=== PATIENT | female | born 1995 | race Caucasian/White ===

== ENCOUNTER → 2016-07-16 | Outpatient (REF) | payer OTHER | LOC: M LAB REF 13:05 | PROVIDERS: ATTEND Advanced Practice Midwife | DX: Z36 Encounter for antenatal screening of mother (principal); Z3A.00 Weeks of gestation of pregnancy not specified ==

== ENCOUNTER → 2016-07-17 | Outpatient (CLI) | payer OTHER, MEDICAID ==
[2016-07-17 14:57] LABS: BASO % 0.4 % (0.0-1.0); EOS # 0.2 K/mm3 (0.0-0.50); EOS % 2.1 % (0.0-3.0); LARGE UNSTAINED CELL # 0.1 K/mm3 (0.0-0.4); LARGE UNSTAINED CELL % 1.3 % (0.0-4.0); LYMPH # 1.5 K/mm3 (1.5-6.5); LYMPH % 17.2 % (24.0-44.0); MEAN CORPUSCULAR HEMOGLOBIN 27.2 pg (27.0-33.0); MEAN CORPUSCULAR VOLUME 82.5 fl (80.0-96.0); MONO # 0.3 K/mm3 (0.0-0.8); MONO % 3.7 % (0.0-5.0); NEUTROPHILS # 6.5 K/mm3 (1.8-7.7); NEUTROPHILS % 75.4 % (36.0-66.0); PLATELET COUNT, AUTOMATED 191 k/mm3 (150-450); RED CELL DISTRIBUTION WIDTH 15.3 % (11.5-14.5); WHITE BLOOD COUNT 8.7 K/mm3 (4.0-10.0)
== END ==
LOC: M LAB 14:32
PROVIDERS: ATTEND Advanced Practice Midwife
DX: Z36 Encounter for antenatal screening of mother (principal)

== ENCOUNTER 2016-08-19 14:38 | Inpatient (IN) | payer OTHER, MEDICAID ==
[~2016-08-19] VITALS: Ht 162.6 cm; Wt 68.0 kg
[2016-08-19 14:56] VITALS: BP 122/80
[2016-08-19] MEDS ORDERED: VALT500T PO (15:25)
[2016-08-19] MEDS ORDERED: IRON50TA PO (15:25)
[2016-08-19 16:09] LABS: MEAN CORPUSCULAR HEMOGLOBIN 26.9 pg (27.0-33.0); MEAN CORPUSCULAR HGB CONC 33.8 g/dl (32.0-36.5); MEAN CORPUSCULAR VOLUME 79.8 fl (80.0-96.0); RED CELL DISTRIBUTION WIDTH 14.8 % (11.5-14.5); WHITE BLOOD COUNT 11.8 K/mm3 (4.0-10.0)
[2016-08-19] MEDS: miSOPROStol 50 MCG 1/2 TAB (S0191) PO SCH ×2 (17:42→22:39)
[2016-08-19 19:34] VITALS: BP 114/75
[2016-08-19 20:40] VITALS: BP 114/75
[2016-08-19 22:39] VITALS: BP 101/66
[2016-08-20] VITALS (55 sets, daily range): BP systolic 85–145; BP diastolic 50–89
[2016-08-20] MEDS ORDERED: PROMETHAZINE INJ 25 MG/ML VIAL (J2550) IV PRN
[2016-08-20] MEDS: BUTORPHANOL 2 MG/ML INJ (J0595) IV PRN ×2 (00:23→04:41)
--- NOTE | 2016-08-20 02:51 | HPE ---
DATE OF ADMISSION: 08/19/2016 REASON FOR ADMISSION: Induction of labor. HISTORY OF PRESENT ILLNESS: Ms. Walters is a 21-year-old 1, who presents at 41 weeks 0 days estimated gestational age by a mid trimester ultrasound for induction of labor. Her course is remarkable for late entry care at approximately 16 weeks. Since that appointment, she has had appropriate care throughout. PAST MEDICAL HISTORY: None. PAST SURGICAL HISTORY: None. PAST OBSTETRICAL HISTORY: She is 1. MEDICATIONS: Include vitamins and Valtrex. ALLERGIES: She has no known drug allergies. PHYSICAL EXAMINATION: VITAL SIGNS: Stable. She is afebrile. GENERAL APPEARANCE: Well-appearing in no acute distress. She has category 1 heart rate tracing. LUNGS: Clear to auscultation bilaterally. CARDIOVASCULAR: Heart is regular rate and rhythm. ABDOMEN: Soft, gravid, and nontender. Estimated weight (EFW) 3500 grams. CERVICAL EXAMINATION: She was 1-2 cm dilated, 50% effaced, -3 station. LABORATORIES: Her blood type is B positive. Antibody screen is negative. Rubella is immune. RPR is nonreactive. Hepatitis surface antigen is negative. HIV is negative. Hepatitis C is nonreactive. Chlamydia and gonorrhea screens are negative. She had a normal 1-hour Glucola of 81. She is group B Streptococcus (GBS) negative. ASSESSMENT: 1. Ms. Walters is a 21-year-old 1 at 41 weeks 0 days estimated gestational age here for induction of labor. 2. Reassuring status. PLAN: 1. Admit to labor and delivery. CBC, RPR, type and screen. 2. Patient has been thoroughly counseled in regards to induction of labor. I discussed medication, as well as procedures performed late in delivery. The patient has also been counseled and verbally consented to emergency surgery, blood products and anesthesia. All questions are answered and she desires to proceed with induction of labor. Will initiate her induction of labor with oral misoprostol 50 mcg.
[2016-08-20] MEDS ORDERED: FENTANYL 2MCG/ML ROPIVACAINE 0.2% NACL 250 ML CADD As Ordered ONE (08:01)
[2016-08-20] MEDS ORDERED: NALOXONE INJ 0.4 MG/1 ML VIAL (J2310) IV PRN ×2 (08:05→09:30)
[2016-08-20] MEDS ORDERED: EPIDURAL COMMENT XX SCH ×2 (08:05→09:30)
[2016-08-20] MEDS ORDERED: diphenhydrAMINE INJ 50MG/ML VIAL (J1200) IV PRN ×2 (08:05→09:30)
[2016-08-20] MEDS ORDERED: ePHEDrine SULFATE 25 MG/5 ML(5MG/ML) SYRINGE IV PRN ×2 (08:05→09:30)
[2016-08-20] MEDS ORDERED: REFRIGERATOR IV KEYS XX PRN ×2 (08:05→09:30)
[2016-08-20] MEDS ORDERED: LACTATED RINGER'S 1000 ML IV PRN (08:05)
[2016-08-20] MEDS ORDERED: EPIDURAL/PCA KEYS XX PRN ×2 (08:05→09:30)
[2016-08-20] MEDS ORDERED: ONDANSETRON 4MG/2ML VIAL (J2405) IV PRN ×3 (08:05→14:30)
[2016-08-20] MEDS ORDERED: FENTANYL/ROPIVACAINE/NACL CADD 250 ML EPIDURAL SCH ×2 (08:05→09:30)
[2016-08-20] MEDS ORDERED: ePHEDrine SULFATE 25 MG/5 ML(5MG/ML) SYRINGE As Ordered ONE (08:50)
[2016-08-20] MEDS: PRENATAL VITAMIN TAB PO SCH (09:00)
[2016-08-20] MEDS ORDERED: OXYTOCIN 30 UNITS IN 0.9% NaCl 500ML IV BAG (J2590) As Ordered ONE (12:29)
[2016-08-20] MEDS ORDERED: OXYTOCIN DRIP 30 UNITS in APPROPRIATE DILUENT 1 EA IV SCH (14:18)
[2016-08-20] MEDS: LR 1,000 ML IV SCH ×2 (14:18→22:18)
[2016-08-20] MEDS ORDERED: RHOGAM 300 MCG (1500 IU) INJ (J2790) IM SCH (14:30)
[2016-08-20] MEDS ORDERED: DIBUCAINE 1% OINTMENT 30GM TOP PRN (14:30)
[2016-08-20] MEDS ORDERED: ANUSOL HC CREAM 30GM TOP PRN (14:30)
[2016-08-20] MEDS ORDERED: MEASLES,MUMPS,RUBELLA VACCINE INJ (MMR-II) (90707) SC SCH (14:30)
[2016-08-20] MEDS ORDERED: PROMETHAZINE 25 MG TAB PO PRN (14:30)
[2016-08-20] MEDS ORDERED: DOCUSATE SODIUM 100 MG CAP PO PRN (14:30)
[2016-08-20] MEDS: IBUPROFEN 800 MG TAB PO PRN (17:26)
[2016-08-20] MEDS: ACETAMINOPHEN 500 MG TAB PO PRN (19:41)
[2016-08-21] MEDS: IBUPROFEN 800 MG TAB PO PRN ×2 (05:05→15:27)
[2016-08-21 05:41] VITALS: BP 120/69
[2016-08-21] MEDS: PRENATAL VITAMIN TAB PO SCH (09:00)
[2016-08-21] MEDS ORDERED: ADACEL/BOOSTRIX VACCINE (DIPHTH/PERTUSS/ACELL/TETANUS)0.5ML SYR (90715) IM ONE (09:00)
[2016-08-21 18:14] VITALS: BP 115/71
[2016-08-21] MEDS: ACETAMINOPHEN 500 MG TAB PO PRN (22:43)
[2016-08-22 05:30] VITALS: BP 126/72
[2016-08-22] MEDS: PRENATAL VITAMIN TAB PO SCH (09:00)
[2016-08-22] MEDS ORDERED: IBUP-1114 PO (10:43)
[2016-08-22] MEDS ORDERED: COLA100C PO (10:43)
[2016-08-22] MEDS ORDERED: ACET50TA PO (10:43)
== END 2016-08-22 14:55 | disposition home or self-care (01) | DRG 775 ==
LOC: M LDI 14:38 → M OBS 08-20 16:09
PROVIDERS: ADMIT Obstetrics & Gynecology; ATTEND Obstetrics & Gynecology
PROC: 10907ZC Drainage of Amniotic Fluid, Therapeutic from Products of Conception, Via Natural or Artificial Opening (ICD-10-PCS; 2016-08-19)
PROC: 3E0P7GC Introduction of Other Therapeutic Substance into Female Reproductive, Via Natural or Artificial Opening (ICD-10-PCS; 2016-08-19)
PROC: 10E0XZZ Delivery of Products of Conception, External Approach (ICD-10-PCS; principal; 2016-08-20)
PROC: 0KQM0ZZ Repair Perineum Muscle, Open Approach (ICD-10-PCS; 2016-08-20)
DX: O48.0 Post-term pregnancy (principal); Z3A.41 41 weeks gestation of pregnancy; O70.1 Second degree perineal laceration during delivery; O69.81X0 Labor and delivery complicated by cord around neck, without compression, not applicable or unspecified; Z37.0 Single live birth

== ENCOUNTER 2019-07-09 10:19 | Emergency (ER) | payer OTHER, MEDICAID ==
[~2019-07-09] VITALS: Ht 160 cm; Wt 64.4 kg
[~2019-07-09 10:19] MED LIST: COLA100C5 PO; IBUP-1114 PO; IRON50TA PO; MAPA500T2 PO; VALT500T PO
[2019-07-09 10:20] VITALS: BP 139/82
[2019-07-09] MEDS ORDERED: OSEL75CA PO (10:25)
--- NOTE | 2019-07-09 11:10 | REP ---
CHEST PA AND LATERAL: 07/09/2019. Comparison: 07/01/2013. Clinical history: Cough, fever. Rule out pneumonia. Findings: Two views show the lungs well inflated. There are a few cuffed bronchi in the perihilar regions which might reflect reactive airway disease or bronchitis. No dense consolidation, effusion, lateral pleural thickening, apical scarring or parenchymal lung mass. The heart, mediastinal and hilar contours were normal. Aorta and airway were unremarkable. Bony thorax shows no focal lesion. No free air under the diaphragm. Impression: 1. Some minor peribronchial thickening that may reflect some reactive airway disease or bronchitis but no dense consolidation or effusion. Electronically Signed by Luciano Jones MD 07/09/2019 08:23 P
[2019-07-09 11:11] LABS: INFLUENZA A AMPLIFICATION NEGATIVE (NEGATIVE); INFLUENZA B AMPLIFICATION NEGATIVE (NEGATIVE)
[2019-07-09] MEDS ORDERED: MUCI600T31 PO (11:15)
[2019-07-09] MEDS ORDERED: BENZ200C70 PO (11:15)
[2019-07-09] MEDS ORDERED: VENTAER INH (11:16)
== END 2019-07-09 11:20 | disposition home or self-care (01) ==
LOC: M ED 10:19
DX: J06.9 Acute upper respiratory infection, unspecified (principal); R05 Cough; Z20.828 Contact with and (suspected) exposure to other viral communicable diseases; Z79.899 Other long term (current) drug therapy

== ENCOUNTER → 2019-12-01 | Outpatient (REF) | payer OTHER ==
[~2019-12-01] MED LIST changes: +BENZ200C70 PO; +MUCI600T31 PO; +OSEL75CA PO; +VENTAER INH
== END ==
LOC: M LAB REF 19:51
PROVIDERS: ATTEND Nurse Practitioner Family
DX: J02.9 Acute pharyngitis, unspecified (principal)

== ENCOUNTER → 2025-03-09 | Outpatient (REF) | payer BC, OTHER ==
[2025-03-09 14:40] LABS: Trichomonas vaginalis (AMP) NOT DETECTED (NEGATIVE)
[2025-03-09 15:05] LABS: GC DNA AMPLIFICATION NEGATIVE (NEGATIVE)
== END ==
LOC: M SFHCWAGY 13:16
PROVIDERS: ATTEND Nurse Practitioner Family
DX: Z34.80 Encounter for supervision of other normal pregnancy, unspecified trimester (principal)

== ENCOUNTER → 2025-04-25 | Outpatient (CLI) | payer OTHER ==
[2025-04-25 15:43] LABS: PLATELET COUNT, AUTOMATED 313 10^3/uL (150-450)
[2025-04-25 17:18] LABS: HIV 1&2 SCREEN NEGATIVE (NEGATIVE)
[2025-04-25 17:27] LABS: HEPATITIS C VIRUS ABY INDEX < 0.02 INDEX (<0.8)
== END ==
LOC: M PLALAB 11:36
PROVIDERS: ATTEND Nurse Practitioner Family
DX: Z34.80 Encounter for supervision of other normal pregnancy, unspecified trimester (principal)

== ENCOUNTER → 2025-04-25 | Outpatient (CLI) | payer OTHER | LOC: M PLALAB 11:34 | PROVIDERS: ATTEND Advanced Practice Midwife | DX: Z34.82 Encounter for supervision of other normal pregnancy, second trimester (principal) ==

== ENCOUNTER → 2025-05-17 | Outpatient (CLI) | payer OTHER | LOC: M WHC 14:06 | PROVIDERS: ATTEND Advanced Practice Midwife | DX: Z34.82 Encounter for supervision of other normal pregnancy, second trimester (principal) ==